=== PATIENT | female | born 1945 | race Caucasian/White ===

== ENCOUNTER 2020-01-21 14:42 | Outpatient (CLI) | payer MEDICARE, SELFPAY ==
--- NOTE | ~2020-01-21 | MM_ITS ---
EXAMINATION: MM screening [facility] BI w dee HISTORY: Screening mammogram TECHNIQUE: Craniocaudal and mediolateral oblique 3-D tomosynthesis images were obtained and synthetic 2-D images were generated. CAD analysis was submitted and interpreted. COMPARISON: No prior mammogram is available for comparison at this institution. BREAST PARENCHYMAL COMPOSITION: There are scattered areas of fibroglandular density. FINDINGS: Focal asymmetry in the central left breast on craniocaudal view (craniocaudal tomosynthesis slice 35/63). Diagnostic left mammogram is recommended, with ultrasound if required. Otherwise there is no evidence of suspicious mass, calcification, or architectural distortion to sugg est malignancy in either breast. There has been no suspicious interval change. IMPRESSION: 1. Left central breast asymmetry. 2. Recommend diagnostic left mammogram, with ultrasound if required. BI-RADS Category 0: Incomplete: Needs additional imaging evaluation. Reviewed, dictated and finalized at location A.
== END 2020-01-21 14:43 | disposition home or self-care (01) ==
DX: Z12.31 Encounter for screening mammogram for malignant neoplasm of breast (principal); R92.8 Other abnormal and inconclusive findings on diagnostic imaging of breast
CPT/HCPCS: 77063; 77067

== ENCOUNTER 2020-02-17 11:52 | Outpatient (CLI) | payer MEDICARE, SELFPAY ==
--- NOTE | ~2020-02-17 | MMUS_ITS ---
EXAMINATION: MM diagnostic mammo unilat LT, US breast LT limited HISTORY: Left breast asymmetry on screening mammogram TECHNIQUE: Additional 3-D tomosynthesis images of the left breast were performed and synthetic 2-D im ages were generated. CAD analysis was submitted and interpreted. High resolution limited left breast ultrasound was performed. COMPARISON: 01/21/2020, 09/20/2016 FINDINGS: MAMMOGRAPHIC FINDINGS: There is a return to baseline fibroglandular appearance with spot compression of the central left darío ast. No suspicious mass, calcification, or architectural distortion are identified. ULTRASOUND: There is no evidence of focal abnormal solid or cystic lesion in the vicinity of the mammographic fin ding in question. A fluid-filled duct is noted without evidence of intraductal mass. IMPRESSION: 1. No mammographic or sonographic evidence of malignancy. 2. Recommend routine screening mammography in one year. BI-RADS Category 2: Benign finding(s). Reviewed, dictated and finalized at location A. [employer]INE[employer] IMPRESSION: 1. No mammographic or sonographic evidence of malignancy. 2. Recommend routine screening mammography in one year. BI-RADS Category 2: Benign finding(s).
== END 2020-02-17 11:53 | disposition home or self-care (01) ==
LOC: ANHIMG 11:54
DX: R92.8 Other abnormal and inconclusive findings on diagnostic imaging of breast (principal)
CPT/HCPCS: 76642; 77065

== ENCOUNTER 2023-01-04 08:38 | Outpatient (CLI) | payer MEDICARE, SELFPAY ==
--- NOTE | ~2023-01-04 | MM_ITS ---
EXAMINATION: MM screening [facility] w dee HISTORY: Screening mammogram, family history of breast cancer in her mother. TECHNIQUE: Craniocaudal and mediolateral oblique 3-D tomosynthesis images were obtained and synthetic 2-D images were generated. CAD analysis was submitted and interpreted. COMPARISON: 02/17/2020, 01/21/2020, 09/20/2016 BREAST PARENCHYMAL COMPOSITION: There are scattered areas of fibroglandular density. FINDINGS: No suspicious mass, calcification, or architectural distortion are identified in either darío ast to suggest malignancy. There has been no suspicious interval change. IMPRESSION: 1. No mammographic evidence of malignancy. 2. Recommend routine screening mammography in one year. BI-RADS Category 1: Negative Reviewed, dictated and finalized at location A.
== END 2023-01-04 08:39 | disposition home or self-care (01) ==
LOC: ANHIMG 08:42
PROVIDERS: PCP Family Medicine; Visit Provider Family Medicine
DX: Z12.31 Encounter for screening mammogram for malignant neoplasm of breast (principal)
CPT/HCPCS: 77063; 77067

== ENCOUNTER 2023-03-14 00:54 | Day surgery (SDC) | payer MEDICARE, SELFPAY ==
[2023-03-01 09:37] VITALS: BMI 20.5
--- NOTE | 2023-03-10 13:57 | SUR.PREOP ---
Patient called regarding upcoming procedure. Reviewed preop instructions, appointment times, and procedure prep.
[2023-03-14 10:21] VITALS: BP 113/66; PULSE 80; RESP 17; TEMP 36.2; O2SAT 99; BMI 18.8
[2023-03-14] MEDS: LACTATED RINGERS 1,000 ML 150 ML IV CONT (10:32)
--- NOTE | 2023-03-14 10:57 | P.HP_ITS ---
History of Present Illness History of Present Illness Consent: Risks, benefits, and alternatives have been discussed and questions answered. Patient agrees to proceed with procedure. Chief complaint: neoplasm screening Narrative: Margarita Mccauley is a 77 year old female presents for colonoscopy. Patient was previously followed at the [facility]. She was found to have colon polyps 5 years ago. Patient is adopted but knows that her biologic sister had colon cancer. Patient reports that her current weight appetite and bowel movements are normal. She denies abdominal pain. Patient has had no bleeding. Patient presents today for colonoscopy. Review of Systems Review of Systems: Review of systems noncontributory. [facility] Social History Social History Smoking status: Never smoker Tobacco type: cigarettes Alcohol intake: current Alcohol use details: twice a week, glass of wine Substance use: never Substance use type: does not use Living arrangements: alone Spiritual care concerns: No Meds Home Medications and Allergies Home Medications Medication Instructions Recorded Confirmed Type dicyclomine 10 mg capsule 10 mg PO QID 03/01/23 03/14/23 History doxycycline hyclate 20 mg tablet 20 mg PO BID 03/01/23 03/14/23 History lorazepam 0.5 mg tablet 0.5 mg PO DAILY PRN Anxiety 03/01/23 03/14/23 History losartan 25 mg tablet 25 mg PO DAILY 03/01/23 03/14/23 History Allergies Allergy/AdvReac Type Severity Reaction Status Date / Time phenytoin [From Dilantin] Allergy Rash Verified 03/14/23 10:20 Vital Signs Vital Signs - 24 hr 03/14/23 10:21 Temperature 97.1 F L Pulse Rate 80 Respiratory Rate 17 Blood Pressure 113/66 Pulse Oximetry 99 Oxygen Delivery Room Air Exam Narrative: Physical exam reveals patient to be alert. Vital signs stable. HEENT exam is unremarkable. Patient is anicteric. Lungs are clear to auscultation and percussion. Heart is without murmur or extra sounds. Abdomen bowel sounds are present soft nontender with no organomegaly. Digital external rectal exam normal. Assessment and Plan Assessment and plan (1) Family hx of colon cancer: Code(s): Z80.0 - Family history of malignant neoplasm of digestive organs Status: Acute Assessment and Plan: Patient's biologic sister known to have colon cancer. Plan for surveillance colonoscopy at 5 year intervals. (2) History of colon polyps: Code(s): Z86.010 - Personal history of colonic polyps Status: Acute Assessment and Plan: Patient reports recent colonoscopy performed in [place] showed colon polyps. Surveillance colonoscopy advised at 5 year intervals.
--- NOTE | 2023-03-14 11:18 | P.PNAN_ITS ---
Anes - Initial Pre Proc Eval Procedure: Operation Date: 03/14/23 11:30 Proposed Procedures p Screening Colonoscopy - Owen See MD Date/Time: 03/14/23 11:18 Surgeon: Owen See MD Pre Op Diagnosis: neoplasm screening Patient Data Age: 77 Gender: F Height: 1.5 m Weight: 42.2 kg Last Vital Signs Temp 97.1 F L 03/14/23 10:21 Pulse 80 03/14/23 10:21 Resp 17 03/14/23 10:21 BP 113/66 03/14/23 10:21 Pulse Ox 99 03/14/23 10:21 O2 Del Method Room Air 03/14/23 10:21 Allergies Allergy/AdvReac Type Severity Reaction Status Date / Time phenytoin [From Dilantin] Allergy Rash Verified 03/14/23 10:20 Home Medications Medication Instructions Recorded Confirmed Type dicyclomine 10 mg capsule 10 mg PO QID 03/01/23 03/14/23 History doxycycline hyclate 20 mg tablet 20 mg PO BID 03/01/23 03/14/23 History lorazepam 0.5 mg tablet 0.5 mg PO DAILY PRN Anxiety 03/01/23 03/14/23 History losartan 25 mg tablet 25 mg PO DAILY 03/01/23 03/14/23 History Patient hx anesthesia problems: none Family hx anesthesia problems: none Results Review: All pre-operative results and documents have been reviewed as part of the pre- operative evaluation. [facility] Social History Social History Smoking status: Never smoker Tobacco type: cigarettes Alcohol intake: current Alcohol use details: twice a week, glass of wine Substance use: never Substance use type: does not use Living arrangements: alone Spiritual care concerns: No Anes - Eval Final PreProcedure Day of Procedure 03/14/23 11:18 Patient weight: normal Heart: regular rate and rhythm Lungs: clear to auscultation Airway: Mallampati scale class II Neurological: alert and oriented Last oral intake: >/= 8 hours ASA classification: II Emergent: no Anesthetic plan: proceed Anesthesia type and monitoring: general GIVS and standard monitoring Results Review: All pre-operative results and documents have been reviewed as part of the pre- operative evaluation. Informed Consent: The patient's anesthetic plan and its attendant risks and benefits were discussed with the patient/family/POA. Questions were solicited and answers provided to the satisfaction of the patient/family/POA.
[2023-03-14 11:58] VITALS: BP 128/69; PULSE 85; RESP 24; O2SAT 96
[2023-03-14 12:08] VITALS: BP 138/67; PULSE 72; RESP 17; O2SAT 99
[2023-03-14 12:15] VITALS: BP 152/73; PULSE 73; RESP 23; O2SAT 100
== END 2023-03-14 12:31 | disposition home or self-care (01) ==
PROVIDERS: PCP Family Medicine; Visit Provider Internal Medicine Gastroenterology
PROC: 0DJD8ZZ Inspection of Lower Intestinal Tract, Via Natural or Artificial Opening Endoscopic (ICD-10-PCS; CPT 45378; principal; 2023-03-14 11:30)
DX: Z12.11 Encounter for screening for malignant neoplasm of colon (principal); K64.8 Other hemorrhoids; Z86.010 Personal history of colon polyps; Z80.0 Family history of malignant neoplasm of digestive organs
CPT/HCPCS: G0105; J2704; J7120